=== PATIENT | male | born 1945 | race Caucasian/White ===

== ENCOUNTER 2016-09-16 11:05 | Inpatient (IN) | payer MEDICARE ==
[2016-09-16] VITALS (8 sets, daily range): BP systolic 120–134; BP diastolic 57–68; PULSE 66–74; RESP 18–21; TEMP 98.3–98.8; O2SAT 96–100
[~2016-09-16] VITALS: Ht 167.6 cm; Wt 68.0 kg
[2016-09-16] MEDS ORDERED: SODIUM CHLORIDE 0.9% FLUSH 10 ML FLUSH IVF PRN (11:30)
[2016-09-16] MEDS: RESP: ALBUTEROL 2.5 MG/IPRATROPIUM 0.5 MG NEB (SCH) INH (11:39)
--- NOTE | 2016-09-16 11:39 | PD ---
HPI Chief Complaint: Respiratory Distress Time Seen by Provider: 11:25 Travel History International Travel<30 days: Yes Contact w/Intl Traveler<30days: Yes Name of Country Traveled to: [place] Traveled to known affect area: No History of Present Illness HPI The patient is a 71-year-old male who presents emergency department for wheezing. The patient states he developed wheezing last night, states he can hear "whistling sounds ", when he exhales. She notes minimal shortness of breath, denies any chest pain. The patient does have a history of coronary artery disease with previous bypass and stent placement. The patient is currently followed by his hospitality coordinator, Dr. Mcknight, as well as his primary physician, Dr. Lynne Wallace. The patient thinks he recently had a stress test which was unremarkable. The patient denies any history of asthma, COPD, or recurrent bronchitis. The patient has a remote history of smoking, quit over 20 years ago. He denies any fever, chills, sweats, nausea, vomiting, or abdominal pain. Symptoms are moderate and there are no known alleviating or exacerbating factors. PFSH Past Medical History Cardiomyopathy: Yes Congestive Heart Failure: Yes Diabetes: Yes Patient Takes Glucophage: Yes Myocardial Infarction: Yes (1997) ?: Not Social History Alcohol Use: No Tobacco Use: No (quit 20 years ago) Substance Use: No Allergies-Medications (Allergen,Severity, Reaction): Coded Allergies: No Known Allergies (Unverified , 09/16/16) Review of Systems Except as stated in HPI: all other systems reviewed are Neg General / Constitutional: No: Fever Cardiovascular: No: Chest Pain or Discomfort Respiratory: Positive: Cough (minimal), Shortness of Breath, Wheezing Gastrointestinal: No: Nausea, Vomiting, Diarrhea, Abdominal Pain Musculoskeletal: No: Edema Neurologic: No: Dizziness Physical Exam Narrative GENERAL: Awake, alert, pleasant 71-year-old male who appears his stated age and is in no acute respiratory distress. SKIN: Focused skin assessment warm/dry. Patient has a large macular rash noted over the back and abdomen which is nonblanching. HEAD: Atraumatic. Normocephalic. EYES: No injection or drainage. ENT: No nasal bleeding or discharge. Mucous membranes pink and moist. NECK: Trachea midline. No JVD. CARDIOVASCULAR: Regular rate and rhythm. No murmur appreciated. RESPIRATORY: No accessory muscle use. Few scattered wheezes and rhonchi in the bases bilaterally. GASTROINTESTINAL: Abdomen soft, non-tender, nondistended. No rebound tenderness. MUSCULOSKELETAL: No obvious deformities. No clubbing. No cyanosis. No edema. NEUROLOGICAL: Awake and alert. No obvious cranial nerve deficits. Motor grossly within normal limits. Normal speech. PSYCHIATRIC: Appropriate mood and affect; insight and judgment normal. Data Data Last Documented VS Vital Signs Date Time Temp Pulse Resp B/P Pulse Ox O2 Delivery O2 Flow Rate FiO2 09/16/16 12:04 66 18 131/58 98 Room Air 09/16/16 11:22 98.3 Orders Complete Blood Count With Diff (09/16/16:) Comprehensive Metabolic Panel (09/16/16:) B-Type Natriuretic Peptide (09/16/16) Act Partial Throm Time (Ptt) (09/16/16:) Prothrombin Time / Inr (Pt) (09/16/16:) Magnesium (Mg) (09/16/16:) Ckmb (Isoenzyme) Profile (09/16/16:27) Troponin I (09/16/16:27) Iv Access Insert/Monitor (09/16/16:) Electrocardiogram (09/16/16:) Ecg Monitoring (09/16/16:) Oximetry (09/16/16:) Oxygen Administration (09/16/16:27) Chest, Single Ap (09/16/16 11:27) Sodium Chloride 0.9% Flush (Ns Flush) (09/16/16 11:30) Albuterol-Ipratropium Neb (Duoneb Neb) (09/16/16 11:30) CKMB (09/16/16 11:40) CKMB% (09/16/16 11:40) Sodium Chlor 0.9% 1000 Ml Inj (Ns 1000 M (09/16/16 12:45) Blood Culture (09/16/16 12:39) Lactic Acid (09/16/16 12:39) Urinalysis - C+S If Indicated (09/16/16 13:19) Place In Observation (09/16/16 ) Vital Signs (Adult) Q4H (09/16/16 13:20) Activity Bed Rest With Brp (09/16/16 13:20) Senior Sas Developer / Telemetry .CONTINUOUS (09/16/16 13:20) Intake + Output AURELIANO.QSHIFT (09/16/16 13:20) Diet Heart Healthy (09/16/16 Lunch) Sodium Chlor 0.9% 1000 Ml Inj (Ns 1000 M (09/16/16 14:00) Sodium Chloride 0.9% Flush (Ns Flush) (09/16/16 13:30) Sodium Chloride 0.9% Flush (Ns Flush) (09/16/16 21:00) Acetaminophen (Tylenol) (09/16/16 13:30) Ondansetron Inj (Zofran Inj) (09/16/16 13:30) Basic Metabolic Panel (Bmp) (09/17/16 06:00) Complete Blood Count With Diff (09/17/16 06:00) Creatine Kinase (Cpk) (09/17/16 06:00) Creatine Kinase (Cpk) (09/17/16 12:00) Resp Oxygen Jaime C Titrat 1-4 L (09/16/16 ) Pt Request For Service (09/16/16 13:20) Heparin Inj (Heparin Inj) (09/16/16 14:00) Naloxone Inj (Narcan Inj) (09/16/16 13:30) Admit Order (Ed Use Only) (09/16/16 13:19) Labs Laboratory Tests Test 09/16/16 09/16/16 11:40 12:58 White Blood Count 5.2 TH/MM3 Red Blood Count 3.37 MIL/MM3 Hemoglobin 10.4 GM/DL Hematocrit 31.6 % Mean Corpuscular Volume 93.9 FL Mean Corpuscular Hemoglobin 31.0 PG Mean Corpuscular Hemoglobin 33.0 % Concent Red Cell Distribution Width 14.9 % Platelet Count 134 TH/MM3 Mean Platelet Volume 10.0 FL Neutrophils (%) (Auto) 74.0 % Lymphocytes (%) (Auto) 9.0 % Monocytes (%) (Auto) 16.5 % Eosinophils (%) (Auto) 0.4 % Basophils (%) (Auto) 0.1 % Neutrophils # (Auto) 3.8 TH/MM3 Lymphocytes # (Auto) 0.5 TH/MM3 Monocytes # (Auto) 0.9 TH/MM3 Eosinophils # (Auto) 0.0 TH/MM3 Basophils # (Auto) 0.0 TH/MM3 CBC Comment DIFF FINAL Differential Comment Prothrombin Time 11.3 SEC Prothromb Time International 1.0 RATIO Ratio Activated Partial 45.9 SEC Thromboplast Time Sodium Level 133 MEQ/L Potassium Level 5.2 MEQ/L Chloride Level 100 MEQ/L Carbon Dioxide Level 24.6 MEQ/L Anion Gap 8 MEQ/L Blood Urea Nitrogen 26 MG/DL Creatinine 1.49 MG/DL Estimat Glomerular Filtration 46 ML/MIN Rate Random Glucose 219 MG/DL Calcium Level 8.6 MG/DL Magnesium Level 1.7 MG/DL Total Bilirubin 1.1 MG/DL Aspartate Amino Transf 248 U/L (AST/SGOT) Alanine Aminotransferase 100 U/L (ALT/SGPT) Alkaline Phosphatase 78 U/L Total Creatine Kinase 4812 U/L Creatine Kinase MB 4.2 NG/ML Creatine Kinase MB % 0.1 % Troponin I 0.05 NG/ML B-Type Natriuretic Peptide 757 PG/ML Total Protein 7.0 GM/DL Albumin 3.2 GM/DL Lactic Acid Level 1.4 mmol/L [facility] Medical Decision Making Medical Screen Exam Complete: Yes Emergency Medical Condition: Yes Medical Record Reviewed: Yes Interpretation(s) EKG reveals sinus bradycardia with a heart rate of 56. Patient has inverted T waves in lead 1, aVL, V4, V5, and V6. Mild KS depression in lead V3. No old EKGs to compare. Last Impressions Chest X-Ray 09/16/16 1127 Signed Impressions: Service Date/Time: Friday, September 16, 2016 11:29 - CONCLUSION: No acute disease. Claudio Abdi MD Laboratory Tests Test 09/16/16 11:40 White Blood Count 5.2 TH/MM3 Red Blood Count 3.37 MIL/MM3 Hemoglobin 10.4 GM/DL Hematocrit 31.6 % Mean Corpuscular Volume 93.9 FL Mean Corpuscular Hemoglobin 31.0 PG Mean Corpuscular Hemoglobin 33.0 % Concent Red Cell Distribution Width 14.9 % Platelet Count 134 TH/MM3 Mean Platelet Volume 10.0 FL Neutrophils (%) (Auto) 74.0 % Lymphocytes (%) (Auto) 9.0 % Monocytes (%) (Auto) 16.5 % Eosinophils (%) (Auto) 0.4 % Basophils (%) (Auto) 0.1 % Neutrophils # (Auto) 3.8 TH/MM3 Lymphocytes # (Auto) 0.5 TH/MM3 Monocytes # (Auto) 0.9 TH/MM3 Eosinophils # (Auto) 0.0 TH/MM3 Basophils # (Auto) 0.0 TH/MM3 CBC Comment DIFF FINAL Differential Comment Prothrombin Time 11.3 SEC Prothromb Time International 1.0 RATIO Ratio Activated Partial 45.9 SEC Thromboplast Time Sodium Level 133 MEQ/L Potassium Level 5.2 MEQ/L Chloride Level 100 MEQ/L Carbon Dioxide Level 24.6 MEQ/L Anion Gap 8 MEQ/L Blood Urea Nitrogen 26 MG/DL Creatinine 1.49 MG/DL Estimat Glomerular Filtration 46 ML/MIN Rate Random Glucose 219 MG/DL Calcium Level 8.6 MG/DL Magnesium Level 1.7 MG/DL Total Bilirubin 1.1 MG/DL Aspartate Amino Transf 248 U/L (AST/SGOT) Alanine Aminotransferase 100 U/L (ALT/SGPT) Alkaline Phosphatase 78 U/L Total Creatine Kinase 4812 U/L Creatine Kinase MB 4.2 NG/ML Creatine Kinase MB % 0.1 % Troponin I 0.05 NG/ML B-Type Natriuretic Peptide 757 PG/ML Total Protein 7.0 GM/DL Albumin 3.2 GM/DL Differential Diagnosis Differential diagnosis includes bronchitis, pneumonia, congestive heart failure , pulmonary edema, pleural effusion, acute coronary syndrome, cardiomyopathy, pulmonary embolism. Narrative Course IV was established, labs were drawn and sent, and the patient was placed on cardiac telemetry monitoring and continuous pulse oximetry monitoring. EKG was ordered and interpreted. Chest x-ray was obtained. The patient was administered a DuoNeb. Chest x-rays unremarkable. CPKs greater than 4800, troponin is 0.05, CK-MB percentage is normal. BNP is 757. I discussed the patient with one of the family members who is also a physician, Dr. David, an anesthesiologist. He states he has been taking care of the patient at home over the last several days and the patient has been hypoglycemic and hypotensive at times. The patient's blood pressure has improved, the mental status has improved according to family members, however, the patient does have an elevated creatinine and CPK of 4800 with elevated BNP of previous CABG. The patient will need judicious IV fluid replacement. Therefore, lactic acid blood culture were sent, the patient received IV fluids and will be admitted for rhabdomyolysis and IV hydration. Physician Communication Physician Communication The on-call medical service was paged for admission. I discussed the patient with Dr. Larson who agrees with 23 hour observation. Diagnosis Primary Impression: Rhabdomyolysis Qualified Code: M62.82 - Non-traumatic rhabdomyolysis Additional Impression: Acute kidney injury Admitting Information Admitting Physician Requests: Admit Condition: Stable Cesar Jackson MD Sep 16, 2016 11:39
[2016-09-16 11:54] LABS: AUTOMATED NEUTROPHIL # 3.8 TH/MM3 (1.8-7.7); BASOPHIL % 0.1 % (0.0-2.0); EOSINOPHIL % 0.4 % (0.0-4.0); HEMATOCRIT 31.6 % (39.0-51.0); HEMO FLAGS DIFF FINAL; LYMPHOCYTE # 0.5 TH/MM3 (1.0-4.8); MEAN CELL VOLUME 93.9 FL (80.0-100.0); MONO % 16.5 % (0.0-8.0); PLATELET COUNT 134 TH/MM3 (150-450); RED BLOOD COUNT 3.37 MIL/MM3 (4.50-5.90); RED CELL DISTRIBUTION WIDTH 14.9 % (11.6-17.2); WHITE BLOOD COUNT 5.2 TH/MM3 (4.0-11.0)
--- NOTE | 2016-09-16 11:55 | RADRPT ---
EXAM DATE/TIME: 09/16/2016 11:29 [facility] COMPARISON: No previous studies available for comparison. INDICATIONS : Short of breath. MEDICAL HISTORY : None. SURGICAL HISTORY : CABG. ENCOUNTER: Initial ACUITY: 1 day PAIN SCORE: Non-responsive. LOCATION: Bilateral chest FINDINGS: There is cardiomegaly and sternotomy wires. The lungs are clear. Osseous structures are intact. CONCLUSION: No acute disease. Claudio Abdi MD on September 16, 2016 at 11:52 Board Certified Radiologist. This report was verified electronically.
[2016-09-16 12:10] LABS: APTT (PATIENT) 45.9 SEC (24.3-30.1); PROTHROMBIN TIME - PATIENT 11.3 SEC (9.8-11.6)
[2016-09-16 12:14] LABS: ANION GAP 8 MEQ/L (5-15); AST (GOT) 248 U/L (15-37); BICARBONATE 24.6 MEQ/L (21.0-32.0); BLOOD UREA NITROGEN 26 MG/DL (7-18); CHLORIDE 100 MEQ/L (98-107); GLOMERULAR FILTRATION RATE 46 ML/MIN (>89); MAGNESIUM 1.7 MG/DL (1.5-2.5); POTASSIUM 5.2 MEQ/L (3.5-5.1); SODIUM (NA) 133 MEQ/L (136-145)
[2016-09-16 12:28] LABS: ALKALINE PHOSPHATASE 78 U/L (45-117); ALT (GPT) 100 U/L (12-78); CREATINE KINASE 4812 U/L (39-308); TOTAL BILIRUBIN ADULT 1.1 MG/DL (0.2-1.0)
[2016-09-16 12:40] LABS: CKMB 4.2 NG/ML (0.5-3.6)
[2016-09-16] MEDS ORDERED: SODIUM CHLOR 0.9% 1000 ML INJ 1,000 ML IV ONE (12:45)
[2016-09-16] MEDS ORDERED: SODIUM CHLORIDE 0.9% FLUSH 10 ML FLUSH IV FLUSH PRN (13:30)
[2016-09-16] MEDS ORDERED: ACETAMINOPHEN 325 MG TAB PO PRN (13:30)
[2016-09-16] MEDS ORDERED: NALOXONE HCL 0.4 MG/ML AMP IV PRN (13:30)
[2016-09-16] MEDS ORDERED: ONDANSETRON HCL 4 MG/2 ML VIAL IVP PRN (13:30)
[2016-09-16 14:16] LABS: BLOOD, URINE SMALL (NEG); GLUCOSE,URINE TRACE mg/dL (NEG); KETONE, URINE NEG (NEG); NITRITE,URINE NEG (NEG); URINE COLOR LIGHT-YELLOW (YELLW/STRAW)
[2016-09-16 14:18] LABS: COMMENT (UR) CULT NOT INDICATED; CULTURE IF INDICATED CULT NOT INDICATED
[2016-09-16] MEDS: SODIUM CHLOR 0.9% 1000 ML INJ 1,000 ML IV SCH (14:36)
[2016-09-16] MEDS: HEPARIN SODIUM - SQ 10,000 UNITS/ML VIAL SQ SCH (14:36)
[2016-09-16] MEDS ORDERED: GLYB1TAB93 PO (14:42)
[2016-09-16] MEDS ORDERED: EMPA1TAB3 PO (14:42)
[2016-09-16] MEDS ORDERED: VASO10TA8 PO (14:42)
[2016-09-16] MEDS ORDERED: LEVO25TA4 PO (14:42)
[2016-09-16] MEDS ORDERED: CORE25TA PO (14:42)
[2016-09-16] MEDS ORDERED: METH2.5T PO (14:42)
[2016-09-16] MEDS ORDERED: ATOR40TA16 PO (14:42)
[2016-09-16] MEDS: RESP: ALBUTEROL 2.5 MG/IPRATROPIUM 0.5 MG NEB (SCH) NEB ×3 (15:36→22:56)
--- NOTE | 2016-09-16 16:06 | MH ---
cc: THEODORE JEREZ DATE OF ADMISSION: 09/16/2016 CHIEF COMPLAINT Wheezing and shortness of breath. TRAVEL IN THE LAST 30 DAYS: Yes. On 09/02/2016 the patient was in [place] on a [place] which included [place]. HISTORY OF PRESENT ILLNESS: This is a very pleasant 71-year-old male who presented to the emergency room for wheezing and shortness of breath. The patient has noted problems for the past five days. He states that he has been in his usual state of health up until that point. He also noticed some mild dizziness off and on but no syncopal episodes. He also states that he has had trouble standing and walking for the past few days. These are all new symptoms. The patient denies any problems with COPD or bronchitis, He does have a history of cardiovascular disease and had a work up not too long ago, but states that he is not use to having any type of shortness of breath or wheezing. He does note, history of congestive heart failure but at this time his chest x-ray looks clear. The patient has a large macular rash noted on his trunk, especially on his back and on his arms. He states that he has been treated for psoriasis for years. The patient denies any chest pain, denies any nausea and vomiting, diarrhea, no constipation, no headaches. The patient states that he has been voiding without any problems but he does have a sense of urgency. The patient does have a tired sensation and stated that his symptoms were not getting any better and he came to the emergency room for evaluation. MEDICAL HISTORY Congestive heart failure. Diabetes type 2 Cardiomyopathy No surgical history given ALLERGIES NONE KNOWN. MEDICATIONS: Lasix is the only medication that patient noted. SOCIAL HISTORY: The patient is , currently is with him, denies any alcohol use. Was a previous smoker but quit approximately 20 years ago. No substance abuse. REVIEW OF SYSTEMS A 12-point review was done positives noted. All are some mild expiratory wheezing with cough, occasional sputum production, shortness of breath, weakness in his lower extremities, mild dizziness, psoriasis otherwise other systems are negative or unremarkable. PHYSICAL EXAMINATION: VITAL SIGNS: Temperature 98.3 pulse 66, respirations 18, blood pressure 131/58, O2 sat 98% on room air. IN GENERAL: Well nourished male, looks to be his stated age, resting on edge of bed. He is alert, oriented and a fair historian. SKIN: The skin is pink mucous membranes warm and dry. Turgor is very dry. Large macular rash noted on his trunk and his bilateral arms with dry skin. HEAD, EYES, EARS, NOSE, AND THROAT: Atraumatic, normocephalic. Pupils equal, round, reactive to light and accommodation, mucous membranes were pink and moist. No scleral icterus. NECK: The neck is supple. CARDIOVASCULAR SYSTEM: S1-S2, no murmurs were to gallops. Heart sounds are mildly distant he has no edema. His pulses are intact. PULMONARY: Diminished wheezy noisy breath sounds anteriorly and posteriorly. He does have some expiratory wheezes and some rhonchi noted. : Clear yellow urine noted in urinal. MUSCULOSKELETAL: He moves his extremities with purpose, He does have some generalized weakness noted in his lower extremities. He is moving his upper extremities and can overcome resistance. NEUROLOGICALLY: He is alert, oriented a fair historian. His assists with some of this information and the rest of it is being obtained from the record. His speech is clear with an accent. PSYCHIATRIC: Appropriate mood and affect, judgment normal, asking appropriate questions. DIAGNOSTIC DATA Sodium 133, potassium 0.2, chloride was 100, carbon dioxide 24.6 and anion gap 8, BUN 26, creatinine 1.49, GFR 46, random glucose 219, lactic acid 1.4, calcium 8.6, magnesium 1.7, total bilirubin 1.1, AST 248, ALT 100 alkaline phosphatase 78, total creatinine kinase 4812, CPK-MB 2, CPK-MB is 4.2, percentage 0.1, troponin 0.05. BNP 757, total protein 7, albumin 3.2. PT/INR is 1, white blood cell 5.2, RBC 3.37, hemoglobin 7.1, hematocrit 31.6, platelet count 134. Neutrophil auto percentage 74, monocyte, auto percentage 16.5. Length of 50.5. IMAGING STUDIES Shows chest pain to have no acute disease. ASSESSMENT AND PLAN: 1. Rhabdomyolysis, nontraumatic with acute kidney injury and renal insufficiency. 2. Anemia. 3. Thrombocytopenia, mild. 4. Hypokalemia, mild. 5. Hyponatremia mild. 6. Hyperglycemia in the presence of nondiabetes. 7. History of congestive heart failure. 8. Protein calorie malnutrition, mild. 9. Possible bronchitis 10. Bronchitis. Possibly viral respiratory infection. PLAN: The plan is to admit inpatient status, continuous ECG monitoring, IV hydration continuous for now. In the emergency room the patient received a normal saline Bolus. Lab work, multiple lab work, electrocardiogram monitoring, oxygen administration. Electrocardiogram, deep venous thrombosis prophylaxis will be given with heparin, Protonix, p.o. for PUD prophylaxis. The patient will receive p.r.n. medications and will attempt to reconcile his medications, heart healthy diet. Bedrest with bathroom privileges only with assistance for his safety, intake and output, vital signs will be q 4 hours and more often as warranted. Plan of care will be discussed with Dr. Jerez, DuoNeb's have been ordered Q-4, to continue with 02, we will get a sputum culture. We will [id number] his aggressive hydration. The patient is full code, full aggressive care and we will follow. Soha Jerez MD DICTATED BY: DEE Bridges/may /2:02 PM /2:59 PM
[2016-09-16] MEDS: SODIUM CHLORIDE 0.9% FLUSH 10 ML FLUSH IV FLUSH SCH (21:17)
[2016-09-17] VITALS (7 sets, daily range): BP systolic 108–138; BP diastolic 57–74; PULSE 61–84; RESP 18–20; TEMP 98.1–99.8; O2SAT 94–97
[2016-09-17] MEDS: SODIUM CHLOR 0.9% 1000 ML INJ 1,000 ML IV SCH (02:46)
[2016-09-17] MEDS: HEPARIN SODIUM - SQ 10,000 UNITS/ML VIAL SQ SCH ×2 (02:47→14:29)
[2016-09-17] MEDS: RESP: ALBUTEROL 2.5 MG/IPRATROPIUM 0.5 MG NEB (SCH) NEB ×6 (03:42→23:38)
[2016-09-17 07:16] LABS: AUTOMATED NEUTROPHIL # 3.8 TH/MM3 (1.8-7.7); BASOPHIL % 0.2 % (0.0-2.0); EOSINOPHIL % 0.3 % (0.0-4.0); HEMATOCRIT 29.4 % (39.0-51.0); LYMPH % 13.3 % (9.0-44.0); LYMPHOCYTE # 0.8 TH/MM3 (1.0-4.8); MEAN CORPUSCULAR HEMOGLOBIN 31.4 PG (27.0-34.0); MEAN CORPUSCULAR HGB CONC 33.5 % (32.0-36.0); MONO % 26.9 % (0.0-8.0); NEUT % 59.3 % (16.0-70.0); PLATELET COUNT 120 TH/MM3 (150-450); RED BLOOD COUNT 3.12 MIL/MM3 (4.50-5.90); RED CELL DISTRIBUTION WIDTH 14.7 % (11.6-17.2); WHITE BLOOD COUNT 6.3 TH/MM3 (4.0-11.0)
[2016-09-17 07:19] LABS: HEMO FLAGS AUTO DIFF
[2016-09-17 07:35] LABS: BICARBONATE 23.3 MEQ/L (21.0-32.0); POTASSIUM 4.6 MEQ/L (3.5-5.1)
[2016-09-17 07:57] LABS: CKMB 2.7 NG/ML (0.5-3.6)
--- NOTE | 2016-09-17 08:17 | HHI.PR ---
Subjective Subjective Remarks awake pleasant confusion during am hours. O2 per mask SOB mild at rest restless in bed daughter in (Emily Bernal) Review of Systems Constitutional Constitutional: Weakness (generalized, and LE) (Emily Bernal) Pulmonary Respiratory: Shortness of Breath, Wheezing (Emily Bernal) Musculoskeletal MS: Weakness, Stiffness (Emily Bernal) Neurologic Neurologic: Confused (new) (Emily Bernal) Psychiatric Psychiatric: Normal Mood, Anxiety, Sleep Problems (Emily Bernal) Vitals/Results Vital Signs Vital Signs Date Time Temp Pulse Resp B/P Pulse Ox O2 Delivery O2 Flow Rate FiO2 09/17/16 07:39 94 Nasal Cannula 2.00 09/17/16 07:24 71 20 138/63 95 09/17/16 03:29 98.7 72 18 136/63 97 09/17/16 00:00 98.1 84 18 128/74 97 09/16/16 22:15 70 09/16/16 19:46 98.8 74 21 121/68 96 09/16/16 19:20 100 09/16/16 14:37 69 18 120/58 96 Room Air 09/16/16 13:25 99 21 09/16/16 12:04 66 18 131/58 98 Room Air 09/16/16 11:29 98 Room Air 09/16/16 11:29 18 97 Room Air 09/16/16 11:22 65 18 98 Room Air 09/16/16 11:22 98.3 70 18 134/57 98 Room Air (Emily Bernal) CBC/BMP: 09/17/16 0552 09/17/16 0552 Lab Results Laboratory Tests Test 09/16/16 09/16/16 09/16/16 09/17/16 11:40 12:58 13:45 05:52 White Blood Count 5.2 TH/MM3 6.3 TH/MM3 Red Blood Count 3.37 MIL/MM3 3.12 MIL/MM3 Hemoglobin 10.4 GM/DL 9.8 GM/DL Hematocrit 31.6 % 29.4 % Mean Corpuscular Volume 93.9 FL 94.0 FL Mean Corpuscular Hemoglobin 31.0 PG 31.4 PG Mean Corpuscular Hemoglobin 33.0 % 33.5 % Concent Red Cell Distribution Width 14.9 % 14.7 % Platelet Count 134 TH/MM3 120 TH/MM3 Mean Platelet Volume 10.0 FL 10.5 FL Neutrophils (%) (Auto) 74.0 % 59.3 % Lymphocytes (%) (Auto) 9.0 % 13.3 % Monocytes (%) (Auto) 16.5 % 26.9 % Eosinophils (%) (Auto) 0.4 % 0.3 % Basophils (%) (Auto) 0.1 % 0.2 % Neutrophils # (Auto) 3.8 TH/MM3 3.8 TH/MM3 Lymphocytes # (Auto) 0.5 TH/MM3 0.8 TH/MM3 Monocytes # (Auto) 0.9 TH/MM3 1.7 TH/MM3 Eosinophils # (Auto) 0.0 TH/MM3 0.0 TH/MM3 Basophils # (Auto) 0.0 TH/MM3 0.0 TH/MM3 CBC Comment DIFF FINAL AUTO DIFF Differential Comment Prothrombin Time 11.3 SEC Prothromb Time International 1.0 RATIO Ratio Activated Partial 45.9 SEC Thromboplast Time Sodium Level 133 MEQ/L 133 MEQ/L Potassium Level 5.2 MEQ/L 4.6 MEQ/L Chloride Level 100 MEQ/L 102 MEQ/L Carbon Dioxide Level 24.6 MEQ/L 23.3 MEQ/L Anion Gap 8 MEQ/L 8 MEQ/L Blood Urea Nitrogen 26 MG/DL 21 MG/DL Creatinine 1.49 MG/DL 1.40 MG/DL Estimat Glomerular Filtration 46 ML/MIN 50 ML/MIN Rate Random Glucose 219 MG/DL 200 MG/DL Calcium Level 8.6 MG/DL 7.9 MG/DL Magnesium Level 1.7 MG/DL Total Bilirubin 1.1 MG/DL Aspartate Amino Transf 248 U/L (AST/SGOT) Alanine Aminotransferase 100 U/L (ALT/SGPT) Alkaline Phosphatase 78 U/L Total Creatine Kinase 4812 U/L 2923 U/L Creatine Kinase MB 4.2 NG/ML 2.7 NG/ML Creatine Kinase MB % 0.1 % 0.1 % Troponin I 0.05 NG/ML B-Type Natriuretic Peptide 757 PG/ML Total Protein 7.0 GM/DL Albumin 3.2 GM/DL Lactic Acid Level 1.4 mmol/L Urine Color LIGHT-YELLOW Urine Turbidity CLEAR Urine pH 5.0 Urine Specific [place] 1.008 Urine Protein NEG mg/dL Urine Glucose (UA) TRACE mg/dL Urine Ketones NEG mg/dL Urine Occult Blood SMALL Urine Nitrite NEG Urine Bilirubin NEG Urine Urobilinogen LESS THAN 2.0 MG/DL Urine Leukocyte Esterase NEG Urine RBC LESS THAN 1 /hpf Urine WBC LESS THAN 1 /hpf Microscopic Urinalysis Comment CULT NOT INDICATED Microbiology Microbiology 09/16/16 Aerobic Blood Culture, Received Pending 09/16/16 Anaerobic Blood Culture, Received Pending 09/16/16 Aerobic Blood Culture, Received Pending 09/16/16 Anaerobic Blood Culture, Received Pending Imaging Remarks Last Impressions Chest X-Ray 09/16/16 1127 Signed Impressions: Service Date/Time: Friday, September 16, 2016 11:29 - CONCLUSION: No acute disease. Claudio Abdi MD Current Medications Active Medications Acetaminophen (Tylenol) 650 mg Q4H PRN PO; Start 09/16/16 at 13:30 Albuterol/ Ipratropium 1 ampule 1 ampule Q15M INH Last administered on 11:39; Admin Dose 1 AMPULE; Start 09/16/16 at 11:30; Stop 09/16/16 at 11:46 ; Status DC Heparin Sodium (Porcine) (Heparin Inj) 5,000 units Q12H SQ Last administered on 09/17/16 02:47; Admin Dose 5,000 UNITS; Start 09/16/16 at 14:00 Naloxone HCl (Narcan Inj) 0.4 mg UNSCH PRN IV; Start 09/16/16 at 13:30 Ondansetron HCl (Zofran Inj) 4 mg Q6H PRN IVP; Start 09/16/16 at 13:30 Pantoprazole Sodium (Protonix) 40 mg DAILY PO; Start 09/17/16 at 09:00 Sodium Chloride 1,000 ml @ 999 mls/hr BOLUS ONCE IV Last administered on 12:45; Admin Dose 999 MLS/HR; Start 09/16/16 at 12:45; Stop 09/16/16 at 13: 45; Status DC Sodium Chloride (NS 1000 ml Inj) 1,000 ml @ 75 mls/hr [id number] IV Last administered on 09/17/16 02:46; Admin Dose 75 MLS/HR; Start 09/16/16 at 14:00; Stop 09/17/16 at 08:03; Status DC Sodium Chloride (NS Flush) 2 ml BID IV FLUSH Last administered on 09/16/16 21: 17; Admin Dose 2 ML; Start 09/16/16 at 21:00 Sodium Chloride (NS Flush) 2 ml UNSCH PRN IV FLUSH; Start 09/16/16 at 13:30 Sodium Chloride (NS Flush) 2 ml UNSCH PRN IVF; Start 09/16/16 at 11:30; Stop at 13:36; Status DC (Emily Bernal. BOX CAR CHECKER) Physical Exam General General Appearance: Well Developed, Well Nourished, Pale, Anxious (Emily Bernal M. [employer]OX [employer] CHECKER) Eyes Eye Exam: Pupils Reactive (Emily Bernal M. [employer]OX [employer] CHECKER) Ears & Nose Ears & Nose Exam: Nasal Mucosa [place] (Emily Bernal M. [employer]OX [employer] CHECKER) Throat Throat Exam: Oral Mucosa [place] & Moist (Tess Bernalan M. BOX CAR CHECKER) Neck Neck Exam: Neck Supple, Trachea Midline (DoloresTess iglesiasan M. BOX [employer] CHECKER) Pulmonary Resp Exam: Breath Sounds Equal, Diminished Breath Sounds, Poor Inspiratory Effort Resp Remarks wheezing, (Tess Bernalan M. BOX [employer] CHECKER) Cardiology CV Exam: Regular, Normal Sinus Rhythm, Bradycardia (X 1 last am) (Tess Bernalan M. BOX [employer] CHECKER) Gastrointestinal/Abdomen GI Exam: Soft, Non-Tender, Bowel Sounds Present (Emily Bernal M. [employer]OX [employer] CHECK[employer]) Genitourinary Exam: Clear Urine (Emily Bernal M. [employer]OX [employer]) Musculoskeletal MS Exam: Joints Intact (Emily Bernal M. [employer]OX [employer]) Integumentary Skin Exam: Warm, Dry, Intact Skin Remarks scoriasis (Tess Bernalan M. BOX [employer] CHECKER) Extremeties Extremities Exam: No Edema (Tess Bernalan M. BOX [employer] CHECKER) Assessment/Plan Assessment/Plan 1. Rhabdomyolysis, nontraumatic with acute kidney injury and renal insufficiency. 2. Anemia. 3. Thrombocytopenia, mild. 4. Hypokalemia, mild. 5. Hyponatremia mild. 6. Hyperglycemia in the presence of nondiabetes. 7. History of congestive heart failure. 8. Protein calorie malnutrition, mild. 9. Possible bronchitis 10. Bronchitis. Possibly viral respiratory infection. vitals reviewed, normal ranges. Staff states pt. had 1 episode of bradycardia in the am. Patient O2 sat 85, mask 35 % now. Mild dyspnea and restlessness this am. wheezing continues from admission. Hx CHF, eval new CRX this am. BS are diminished, wheezing continues. Will review labs again. DUOnebs q4hr ECG, SR 70s AMS, questionable change in environment and illness, vs hypoxia,, IVF off for now, stat CXR done, portable. Dr. Larson called per staff for update. Rhabdomyolysis, improved today, but still elevated. MY, essentially unchanged, hyponatremia persists. Hyperglycemia , non DM, persists. Will monitor accuchecks for now. SS added Heparin , DVT pro, protonix, PUD D/W nurse D/W daughter D/W Dr. Larson, seen on her behalf (Emily Bernal) Assessment/Plan patient seen and examined developed resp distress requiring VM this am sudden onset confusion this am, although now slowly improving and oriented to person place etc low grade fever 100.1 lungs: crackles d/c i/v fluids CXR with some congestion lasix 20 mg po once check ECHO start rocephin monitor fevers discussed with daughter ( [employer]). concerned about recent falls and confusion. ? CVA MRI brain ordered discussed in detail with patient' daughter at bed side discussed with nursing staff discussed with Emily PRICE (Soha Larson MD) Emily Bernal Sep 17, 2016 08:17 Soha Larson MD Sep 17, 2016 10:06
[2016-09-17] MEDS ORDERED: DEXTROSE 50% IN WATER 50 ML VIAL(D50) IV PUSH PRN (08:30)
[2016-09-17] MEDS ORDERED: GLUCAGON 1 MG/ML VIAL OTHER PRN (08:30)
[2016-09-17 08:44] LABS: BANDS 15 % (0-6); NEUTROPHIL # MANUAL DIFF 4.4 TH/MM3 (1.8-7.7); PLASMA CELLS 1 % (0-0); POLYS (SEG NEUTROPHILS) 55 % (16-70); WBC DIFF SAMPLE 100
[2016-09-17 08:45] LABS: ACANTHOCYTES OCC (NORMAL); PLATELET ESTIMATE SMEAR LOW (NORMAL); PLATELET MORPHOLOGY NORMAL (NORMAL); SCAN/DIFF FINAL DIFF MANUAL
--- NOTE | 2016-09-17 09:08 | RADRPT ---
EXAM DATE/TIME: 09/17/2016 08:24 [facility] COMPARISON: No previous studies available for comparison. INDICATIONS : Patient has had productive cough and chest pain for two days. MEDICAL HISTORY : None. SURGICAL HISTORY : None. ENCOUNTER: Initial ACUITY: 1 day PAIN SCORE: 4/10 LOCATION: Bilateral chest FINDINGS: There are areas of mild vague infiltrate in the left lateral superhilar region and in the lung bases bilaterally. No evidence of effusion. Accounting for rotation, cardiac contours are satisfactory. Lisandro rnotomy wires are present. CONCLUSION: Patchy mild parenchymal infiltrates. Demarcus Lopez MD on September 17, 2016 at 9:06 Board Certified Radiologist. This report was verified electronically.
[2016-09-17] MEDS ORDERED: FUROSEMIDE 20 MG TAB PO ONE (10:15)
[2016-09-17] MEDS: PANTOPRAZOLE SOD 40 MG DELAYED RELEASE TAB PO SCH (10:20)
[2016-09-17] MEDS: SODIUM CHLORIDE 0.9% FLUSH 10 ML FLUSH IV FLUSH SCH ×2 (10:20→21:55)
[2016-09-17] MEDS ORDERED: cefTRIAXone INJ 1,000 MG in SODIUM CHLORIDE 0.9% INJ 100 ML IV SCH (11:00)
--- NOTE | 2016-09-17 12:02 | EKG ---
Date Performed: 09/16/2016 Time Performed: 11:45:47 PTAGE: 71 years EKG: SINUS BRADYCARDIA MARKED LEFT AXIS DEVIATION ST DEVIATION AND MODERATE T-WAVE ABNORMALITY, CONSIDER LATERAL ISCHEMIA ABNORMAL ECG NO PREVIOUS TRACING DOCTOR: Owen Partida Interpretating Date/Time 09/17/2016 11:56:17
[2016-09-17] MEDS: INSULIN NovoLIN REGULAR SUPPLEMENTAL SCALE SQ SCH ×3 (12:11→21:55)
--- NOTE | 2016-09-17 13:45 | RADRPT ---
EXAM DATE/TIME: 09/17/2016 13:18 [facility] COMPARISON: No previous studies available for comparison. INDICATIONS : Altered mental status. MEDICAL HISTORY : Diabetes mellitus type 2. Renal failure, chronic. Hypercholesterolemia. SURGICAL HISTORY : CABG Coronary artery stent. ENCOUNTER: Initial ACUITY: 2 day PAIN SCORE: 0/10 LOCATION: head TECHNIQUE: Multiplanar, multisequence MRI of the brain was performed without contrast. FINDINGS: Examination quality is degraded by motion artifact. CEREBRUM: There is generalized atrophy with mild asymmetry of the lateral ventricles. No evidence of midline s hift, mass lesion, hemorrhage or acute infarction. No extraaxial fluid collections are seen. The pi tuitary gland and suprasellar cistern are normal in configuration. WHITE MATTER: There is mild periventricular white matter signal change with more focal white matter signal abnormal ity in the right parietal mid convexity. POSTERIOR FOSSA: The cerebellum and brainstem demonstrate no acute finding. The 4th ventricle is midline. The cerebel lopontine angle is unremarkable. The cerebellar tonsils are normal in position.DIFFUSION IMAGING: No focal areas of restricted diffusion are seen. No evidence of acute infarction. EXTRACRANIAL: There is mucoperiosteal thickening throughout the paranasal sinuses and there is fluid within the mas toid air cells bilaterally. CONCLUSION: 1. Examination quality is degraded by motion artifact. No acute intracranial abnormality is identifie d. 2. Chronic changes include generalized atrophy and chronic periventricular white matter changes along with right parietal white matter change likely related to old ischemia. 3. Diffuse paranasal sinus mucoperiosteal thickening with fluid in the mastoid air cells. Demarcus Duran MD on September 17, 2016 at 13:40 Board Certified Radiologist. This report was verified electronically.
[2016-09-17 14:47] LABS: INDIRECT BILIRUBIN 0.4 MG/DL (0.0-0.8); TOTAL BILIRUBIN ADULT 0.9 MG/DL (0.2-1.0)
[2016-09-17 15:06] LABS: CKMB 2.8 NG/ML (0.5-3.6)
[2016-09-17] MEDS ORDERED: Vancomycin Consult Pharmacy 1 EA OTHER SCH (17:00)
[2016-09-17] MEDS: PIPERACIL-TAZO 4.5 GM PREMIX 100 ML IV SCH (18:06)
[2016-09-17] MEDS ORDERED: VANCOMYCIN INJ 1,250 MG in SODIUM CHLOR 0.9% 250 ML INJ 250 ML IV SCH (20:00)
[2016-09-17] MEDS ORDERED: CARVEDILOL 12.5 MG TAB PO SCH (21:00)
[2016-09-18] VITALS: BP 121/57; PULSE 53; RESP 18; TEMP 97; O2SAT 99
[2016-09-18] MEDS: HEPARIN SODIUM - SQ 10,000 UNITS/ML VIAL SQ SCH ×2 (02:00→14:07)
[2016-09-18] MEDS: RESP: ALBUTEROL 2.5 MG/IPRATROPIUM 0.5 MG NEB (SCH) NEB ×4 (03:30→15:24)
[2016-09-18 04:00] VITALS: BP 148/66; PULSE 59; RESP 18; TEMP 98.1; O2SAT 99
[2016-09-18] MEDS ORDERED: LEVOTHYROXINE SODIUM 25 MCG TAB PO SCH (06:00)
[2016-09-18] MEDS: PIPERACIL-TAZO 4.5 GM PREMIX 100 ML IV SCH ×4 (06:18→17:28)
[2016-09-18] MEDS: INSULIN NovoLIN REGULAR SUPPLEMENTAL SCALE SQ SCH ×3 (06:21→17:29)
[2016-09-18 06:45] LABS: AUTOMATED NEUTROPHIL # 4.2 TH/MM3 (1.8-7.7); BASOPHIL % 0.3 % (0.0-2.0); EOSINOPHIL # 0.1 TH/MM3 (0-0.4); HEMATOCRIT 26.6 % (39.0-51.0); HEMO FLAGS DIFF FINAL; LYMPH % 8.2 % (9.0-44.0); LYMPHOCYTE # 0.5 TH/MM3 (1.0-4.8); MEAN CELL VOLUME 92.2 FL (80.0-100.0); MEAN CORPUSCULAR HEMOGLOBIN 32.7 PG (27.0-34.0); MEAN CORPUSCULAR HGB CONC 35.4 % (32.0-36.0); MONO % 23.1 % (0.0-8.0); NEUT % 66.4 % (16.0-70.0); PLATELET COUNT 137 TH/MM3 (150-450); RED BLOOD COUNT 2.89 MIL/MM3 (4.50-5.90); RED CELL DISTRIBUTION WIDTH 14.5 % (11.6-17.2); WHITE BLOOD COUNT 6.4 TH/MM3 (4.0-11.0)
[2016-09-18 07:50] LABS: BICARBONATE 26.7 MEQ/L (21.0-32.0); INDIRECT BILIRUBIN 0.6 MG/DL (0.0-0.8); POTASSIUM 3.5 MEQ/L (3.5-5.1); TOTAL BILIRUBIN ADULT 1.4 MG/DL (0.2-1.0)
[2016-09-18 08:00] VITALS: BP 105/72; PULSE 73; RESP 16; TEMP 96; O2SAT 99
[2016-09-18] MEDS: PANTOPRAZOLE SOD 40 MG DELAYED RELEASE TAB PO SCH (08:10)
--- NOTE | 2016-09-18 08:31 | HHI.PR ---
Subjective Subjective Remarks awake, oriented x 3 low grade overnight 99.8 no cp no sob mild cough, little sputum HR down 30's x 1, pt. was sleeping tele reviewed, HR 49, SB no dizziness pt. on Coreg at home daughter at bsd Review of Systems Constitutional Constitutional Remarks 12 point ROS completed, unreliable Vitals/Results Intake & Output 09/17/16 09/17/16 09/18/16 15:00 23:00 07:00 Intake Total 103 ml Output Total 700 ml Balance 103 ml -700 ml Intake IV Total 103 ml Output Urine Total 700 ml Vital Signs Vital Signs Date Time Temp Pulse Resp B/P Pulse Ox O2 Delivery O2 Flow Rate FiO2 09/18/16 04:00 98.1 59 18 148/66 99 09/18/16 00:00 97.0 53 18 121/57 99 09/17/16 20:00 97 21 09/17/16 20:00 98.1 61 18 108/57 97 09/17/16 18:13 99.8 94 09/17/16 13:58 67 CBC/BMP: 09/18/16 0555 09/18/16 0555 Lab Results Laboratory Tests Test 09/17/16 09/18/16 13:56 05:55 Total Bilirubin 0.9 MG/DL 1.4 MG/DL Direct Bilirubin 0.5 MG/DL 0.8 MG/DL Indirect Bilirubin 0.4 MG/DL 0.6 MG/DL Aspartate Amino Transf 173 U/L 121 U/L (AST/SGOT) Alanine Aminotransferase 100 U/L 90 U/L (ALT/SGPT) Alkaline Phosphatase 76 U/L 78 U/L Total Creatine Kinase 2218 U/L 1273 U/L Creatine Kinase MB 2.8 NG/ML 2.0 NG/ML Creatine Kinase MB % 0.1 % 0.2 % Total Protein 6.4 GM/DL 6.1 GM/DL Albumin 2.9 GM/DL 2.7 GM/DL White Blood Count 6.4 TH/MM3 Red Blood Count 2.89 MIL/MM3 Hemoglobin 9.4 GM/DL Hematocrit 26.6 % Mean Corpuscular Volume 92.2 FL Mean Corpuscular Hemoglobin 32.7 PG Mean Corpuscular Hemoglobin 35.4 % Concent Red Cell Distribution Width 14.5 % Platelet Count 137 TH/MM3 Mean Platelet Volume 10.1 FL Neutrophils (%) (Auto) 66.4 % Lymphocytes (%) (Auto) 8.2 % Monocytes (%) (Auto) 23.1 % Eosinophils (%) (Auto) 2.0 % Basophils (%) (Auto) 0.3 % Neutrophils # (Auto) 4.2 TH/MM3 Lymphocytes # (Auto) 0.5 TH/MM3 Monocytes # (Auto) 1.5 TH/MM3 Eosinophils # (Auto) 0.1 TH/MM3 Basophils # (Auto) 0.0 TH/MM3 CBC Comment DIFF FINAL Differential Comment Sodium Level 134 MEQ/L Potassium Level 3.5 MEQ/L Chloride Level 99 MEQ/L Carbon Dioxide Level 26.7 MEQ/L Anion Gap 8 MEQ/L Blood Urea Nitrogen 17 MG/DL Creatinine 1.37 MG/DL Estimat Glomerular Filtration 51 ML/MIN Rate Random Glucose 168 MG/DL Calcium Level 7.7 MG/DL Physical Exam General General Appearance: Well Developed, Well Nourished, Comfortable Eyes Eye Exam: Pupils Equal, Pupils Reactive Ears & Nose Ears & Nose Exam: Nasal Mucosa Hobson Throat Throat Exam: Oral Mucosa Hobson & Moist Neck Neck Exam: Neck Supple, Trachea Midline Pulmonary Resp Exam: Breath Sounds Equal, Diminished Breath Sounds, Poor Inspiratory Effort Cardiology CV Exam: Regular, Normal Sinus Rhythm, Bradycardia (X 1 last am) Gastrointestinal/Abdomen GI Exam: Soft, Non-Tender, Bowel Sounds Present, Non-Distended Musculoskeletal MS Exam: Joints Intact Integumentary Skin Exam: Warm, Dry, Intact Extremeties Extremities Exam: No Edema, Pedal Pulses Palpable Neurologic Neuro Exam: Alert, Awake, Oriented, Speech Clear, Moving All Extremities, No Focal Deficits Psychiatric Psych Exam: Appropriate Responses VTE Prophylaxis VTE Prophylaxis Device: SCDs VTE Prophylaxis Meds: Heparin PUD Prophylasis PUD Prophylaxis: Protonix Assessment/Plan Problem List: (1) Rhabdomyolysis (2) Acute kidney injury (3) Bradycardia (4) Acute confusion (5) PNA (pneumonia) (6) Transaminitis (7) Hyperglycemia (8) Anemia (9) Thrombocytopenia Assessment/Plan episode of AMS, hypoxia, wheezing 09/17 CXR ? PNA received Lasix continue empiric abx, duonebs UA pending today improved, no confusion renal function improving CPK trending down LFTs elevated, etiology unclear now trending down Hyperglycemia, hx of DM will check Hgb A1C continue accuchecks AC/HS with ISS anemia, hgb stable will check iron studies manjinder on tele, while sleeping dec. Coreg if further dysrhythmias, will consult cardiology, sees Dr. Monreal at this time stable, asymptomatic Hx of falls, confused yesterday Brain MRI, no acute findings, old cva will start ASA 81 mg po daily neurology consult echo pending PT eval and tx Labs in am replace K Heparin dvt prophylaxis DC planning, HHC with PT poss. dc tomorrow D/W pt and daughter, she is a balance wheel facer D/W RN D/W Dr. Bailey D/W CM This patient was seen by myself and Dr. Bailey, this note is written on his behalf. Problem Qualifiers (1) Rhabdomyolysis: Qualified Code: M62.82 - Non-traumatic rhabdomyolysis (2) PNA (pneumonia): Qualified Code: J18.9 - Pneumonia of both lower lobes due to infectious organism (3) Anemia: Qualified Code: D64.9 - Anemia, unspecified type Christi Brewer Sep 18, 2016 08:30
--- NOTE | 2016-09-18 08:34 | EC ---
Study Study Date:09/17/2016 STUDY CONCLUSIONS SUMMARY - Left ventricle: The cavity size was mildly dilated. Systolic function was severely reduced. The estimated ejection fraction was in the range of 25% to 30%. Diffuse hypokinesis. The study is not technically sufficient to allow evaluation of LV diastolic function. - Left atrium: The atrium was mildly dilated. - Tricuspid valve: Mild regurgitation. If LV function is below 40, please consider prescribing an ACEI or ARB or document rationale for non-use. PROCEDURE DATA STUDY STATUS: Elective. Procedure: Transthoracic echocardiography. Image quality was good. Scanning was performed from the parasternal, apical, and subcostal acoustic windows. Study completion: The patient tolerated the procedure well. Transthoracic echocardiography. M-mode, complete 2D, complete spectral Doppler, and color Doppler. Height: Height: 66in. Weight: Weight: 148.7lb. Body mass index: BMI: 24kg/m^2. Body surface area: BSA: 1.76m^2. Patient status: Inpatient. CARDIAC ANATOMY LEFT VENTRICLE: The cavity size was mildly dilated. There was no hypertrophy. Systolic function was severely reduced. The estimated ejection fraction was in the range of 25% to 30%. Diffuse hypokinesis. The study is not technically sufficient to allow evaluation of LV diastolic function. AORTIC VALVE: Trileaflet. Doppler: There was no stenosis. No significant regurgitation. Valve area: 2.3cm^2 (Vmax). Indexed valve area: 1.31cm^2/m^2 (Vmax). MITRAL VALVE: The valve appears to be grossly normal. Doppler: There was no evidence for stenosis. Trace regurgitation. Valve area by pressure half-time: 3.93cm^2. Indexed valve area by pressure half-time: 2.23cm^2/m^2. Mean gradient: 4mm Hg (D). Peak gradient: 10mm Hg (D). LEFT ATRIUM: The atrium was mildly dilated. RIGHT VENTRICLE: Not well visualized. PULMONIC VALVE: Not well visualized. Doppler: There was no evidence for stenosis. No significant regurgitation. TRICUSPID VALVE: The valve appears to be grossly normal. Doppler: There was no evidence for stenosis. Mild regurgitation. Peak gradient: 51mm Hg (D). PERICARDIUM: There was no pericardial effusion. Patient weight: 148.7lb _Ejection fraction:_ 65-75% _Fractional shortening:_ 32% up to 5Kg 5-11.5Kg 11.6-22.9Kg 23-45Kg 45-57Kg Aortic Root 7-13 <17 13-22 17-27 17-27 LA diam 6-13 <23 24-38 33-47 37-40 RVID 10-17 7-15 7-15 7-18 8-17 LVIDd 12-22 <32 24-38 33-47 37-40 LVPW 2-4 3-6 5-7 6-8 7-8 IVS 2-4 3-6 5-7 6-8 7-8 BASIC MEASUREMENTS ADULT NORMAL Left ventricle LV internal dimension, ED, chordal *56.1 mm 43-52 level, PLAX LV internal dimension, ES, chordal *50.7 mm 23-38 level, PLAX Fractional shortening, chordal level, *10 % >29 PLAX LV posterior wall thickness, ED 9.65 mm IVS/LVPW ratio, ED 1.03 <1.3 Volume, ED, MOD, 1-plane 103 ml Volume, ES, MOD, 1-plane 73 ml Ejection fraction, MOD, 1-plane 29 % Stroke volume, MOD, 1-plane 30 ml Volume index, ED, MOD, 1-plane 59 ml/m^2 Volume index, ES, MOD, 1-plane 41 ml/m^2 Stroke index, MOD, 1-plane 17 ml/m^2 Ventricular septum Septal thickness, ED 9.96 mm Aortic valve Leaflet separation 15 mm 15-26 Left atrium Anterior-posterior dimension 44 mm Anterior-posterior dimension index *2.5 cm/m^2 <2.2 Right ventricle RV internal dimension, ED, PLAX 23.2 mm 19-38 BASIC MEASUREMENTS ADULT NORMAL Aortic valve Leaflet separation 15 mm 15-26 Aorta Root diameter, ED 28 mm 20-37 DOPPLER MEASUREMENTS ADULT NORMAL Aortic valve Peak velocity, S 136 cm/s VTI, S 35.6 cm Valve area, Vmax 2.3 cm^2 Valve area index, Vmax 1.31 cm^2/m^2 Mitral valve Peak E-wave velocity 129 cm/s Peak A-wave velocity 120 cm/s Mean velocity, D 88.4 cm/s Pressure half-time 56 ms Mean gradient, D 4 mm Hg Peak gradient, D 10 mm Hg Peak E/A ratio 1.1 Valve area, pressure half-time 3.93 cm^2 Valve area index, pressure half-time 2.23 cm^2/m^2 Tricuspid valve Peak gradient, D 51 mm Hg Maximal inflow velocity 357 cm/s Systemic veins Estimated CVP 10 mm Hg Pulmonic valve Peak velocity, S 111 cm/s LEGEND: Mean values are shown as u=mean value. Asterisk (*) horton values outside specified normal range. Prepared and signed by Kyle Rosenthal [id number]
[2016-09-18] MEDS ORDERED: POTASSIUM CHLORIDE 25 MEQ EFFERVESCENT TAB PO ONE (08:45)
[2016-09-18 08:47] LABS: BACTERIA, URINE RARE /hpf; BLOOD, URINE SMALL (NEG); COMMENT (UR) CULT NOT INDICATED; CULTURE IF INDICATED CULT NOT INDICATED; GLUCOSE,URINE TRACE mg/dL (NEG); KETONE, URINE NEG (NEG); NITRITE,URINE NEG (NEG); PH, URINE 6.5 (5.0-8.5); URINE COLOR YELLOW (YELLW/STRAW)
[2016-09-18] MEDS ORDERED: ASPIRIN EC 81 MG TABEC PO SCH (09:00)
[2016-09-18] MEDS ORDERED: CARVEDILOL 12.5 MG TAB PO SCH ×2 (09:00→21:00)
[2016-09-18 10:14] LABS: RETIC % 1.1 % (0.4-3.0); REVIEW FLAG FINAL
[2016-09-18 11:33] LABS: FERRITIN 420 NG/ML (26-388); TRANSFERRIN IRON PROFILE 163 MG/DL (200-360)
[2016-09-18 12:00] VITALS: BP 129/61; PULSE 68; RESP 16; TEMP 96.9; O2SAT 99
[2016-09-18] MEDS: SODIUM CHLORIDE 0.9% FLUSH 10 ML FLUSH IV FLUSH SCH (12:17)
[2016-09-18] MEDS ORDERED: LEVA500T PO (14:13)
[2016-09-18 16:00] VITALS: BP 116/69; PULSE 60; RESP 16; TEMP 96.6; O2SAT 98
[2016-09-18 16:06] LABS: HEMOGLOBIN A1b 2.4 %; HEMOGLOBIN Ao 80.3 %; HEMOGLOBIN LA1C 3.6 %; HEMOGLOBIN P3 6.4 %
[2016-09-18] MEDS ORDERED: ASPI81TA11 PO (16:28)
[2016-09-18] MEDS ORDERED: CARV12.5 PO (16:28)
--- NOTE | 2016-09-18 16:29 | HHI.FF ---
Face to Face Verification Diagnosis: (1) PNA (pneumonia) (2) Rhabdomyolysis Home Health Nursing Order: Medical education Signs/symptoms of disease process I have seen patient Rui Grubbs on 09/18/16. My clinical findings support the need for the requested home health care services because: Ltd mobility - disease progression Deconditioned w/ increased weakness I certify that my clinical findings support that this patient is homebound because: Impaired cognitive ability/safety Artemio Bailey MD Sep 18, 2016 16:29
--- NOTE | 2016-09-18 17:02 | MB ---
cc: BARB ANDERSON DATE OF CONSULTATION 09/18/16 REASON FOR CONSULTATION Reduced ejection fraction by echo. HISTORY OF PRESENT ILLNESS The patient is a 71-year-old male with a history of coronary artery disease, ischemic cardiomyopathy, diabetes, chronic renal insufficiency who presented to the hospital with severe generalized weakness. The patient recently went on a [employer] cruise. When he returned home, he was extremely fatigued and went to bed shortly after returning home. He slept for many hours and when he awoke he noted severe generalized weakness and fatigue. Shortly thereafter, he developed increasing dyspnea, cough, congestion. He may have also had some fever about six days ago. He denies angina, palpitations, dizziness, syncope, near-syncope, pedal edema, paroxysmal nocturnal dyspnea. Since coming into hospital, he states his energy has considerably improved as has his dyspnea. PAST MEDICAL HISTORY 1. Allergic rhinitis. 2. Chronic renal insufficiency. 3. Coronary artery disease status post four-vessel bypass surgery 1997. 4. Diabetes. 5. Gout. 6. Hyperlipidemia. 7. Ischemic cardiomyopathy with ejection fraction of 40% by echo 02/15/2015. Reportedly, his ejection fraction on echo this admission is 25-30%. MEDICATIONS Cardiac medications at home 1. Aspirin 81 mg daily. 2. Atorvastatin 40 mg q.h.s. 3. Coreg 25 mg b.i.d. 4. Enalapril 10 mg b.i.d. 5. Furosemide 20 mg daily p.r.n. ALLERGIES NO KNOWN DRUG ALLERGIES. FAMILY HISTORY Noncontributory. SOCIAL HISTORY The patient is a former smoker. He denies alcohol abuse. REVIEW OF SYSTEMS As in the history of present illness otherwise negative or noncontributory. He also denies headache, abdominal pain, diarrhea, melena, bright red blood per rectum. PHYSICAL EXAMINATION VITAL SIGNS: Blood pressure 129/60 with a pulse of 68, respirations 16. GENERAL: He is a well-developed, well-nourished male in no acute distress HEENT: Jugular venous pressure is normal. Carotid pulses are 2+ bilaterally and without bruits. CHEST: Unlabored respiratory effort with clear lung chavez. CARDIAC: Regular rhythm and rate without S3-S4 or murmur. ABDOMEN: Soft, nontender abdomen. Bowel sounds are present. There is no definite hepatosplenomegaly. EXTREMITIES: No clubbing, cyanosis or edema. IMAGING STUDIES Chest x-ray from 09/16/2016 shows no acute disease. LABORATORY DATA WBC 6.4, hemoglobin 9.4, platelets 137, potassium 3.5, BUN 17, creatinine 1.37, AST 121, ALT 90, CK 1273 with 0.2% MB fraction. Troponin 0.05. CARDIOLOGY STUDIES EKG shows sinus bradycardia, lateral T-wave abnormality, consider ischemia, left axis deviation. IMPRESSION Worsening cardiomyopathy in this 71-year-old male with a history of coronary artery disease status post bypass surgery many years ago, diabetes, gout, hyperlipidemia, chronic renal insufficiency. Reportedly, his echocardiogram this admission shows ejection fraction of 25-30%. His last echo prior to this admission was about two years ago showing ejection fraction of 40%. There is no definite evidence for congestive heart failure by chest x-ray or his present examination. The etiology of the decline in his ejection fraction is not entirely clear. It may be viral mediated. The patient reports no recent angina symptoms. There is no definite evidence for acute coronary syndrome. RECOMMENDATIONS 1. Repeat echo in 3 months; if at that time his ejection fraction is still less than 35% recommend AICD implantation. 2. Would try to resume his usual home cardiac medications as his blood pressures tolerate including beta lyle and SHAHIDA inhibitor therapy. 3. He is cleared for discharge from a cardiac standpoint. MD JACKSON Thomson/ /2:32 PM /4:49 PM [facility]
--- NOTE | 2016-09-18 17:42 | MB ---
cc: ALBER YU DATE OF CONSULTATION 09/18/16 HISTORY OF PRESENT ILLNESS A 71-year-old right-handed man with history of hypertension, non-insulin dependent diabetes, hypercholesterolemia, DC, coronary artery bypass graft, stent, chronic renal insufficiency, creatinine 1.3, hypothyroidism, psoriasis on methotrexate. He does take a baby aspirin a day. He went on a cruise, came back last , about a week ago, had a cough and then developed a fever, got confused during the day, better at night according to his daughter. He was diagnosed with rhabdomyolysis. He had confusion which has cleared. The cruise was in [place]. He had some mild dizziness, trouble standing and walking for a few days, had a rash. PAST MEDICAL HISTORY As above, also 1. Cardiomyopathy, 2. Congestive heart failure. ALLERGIES NO KNOWN DRUG ALLERGIES. MEDICATIONS 1. Lasix at that time. 2. Baby aspirin a day SOCIAL HISTORY Not a smoker or a drinker, lives with his . FAMILY HISTORY Negative for cancer, positive seizure in his daughter, negative for stroke. PHYSICAL EXAMINATION VITAL SIGNS: Afebrile. He has really been afebrile since being in the hospital, 59-68, heart rate down to 30s, sleeping at night and his Coreg has been backed off. NECK: There are no carotid bruits. HEART: Regular rhythm. I did not detect a murmur. NEUROLOGIC: Pupils are equal, visual chavez are full. Extraocular movements intact without nystagmus. Face symmetric with normal sensation. Tongue was midline. There is no drift. Normal strength in upper and lower extremities bilaterally. DTRs are 1+ symmetric throughout. Toes are downgoing bilaterally. Pinprick and vibratory sense was intact throughout. He is not ataxic on [id number]. There is no asterixis. He is awake and alert, oriented x3. Speech is fluent. He is not aphasic. Calculations are intact. 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 Short-term memory 1/3 at 3 minutes. LABORATORY DATA CBC - hematocrit is 27, had been 32 otherwise CBC normal. Basic metabolic profile - Initially sodium was 133 with a creatinine 1.49. His LFTs are elevated AST 248, ALT 100. CPK was 4800, albumin 3.2, BNP 757. B12 was greater than 2000, albumin 2.7, total protein 6.1. LFTs have stayed slightly elevated at 121 and 90 respectively. Calcium low at 7.9-7.7, magnesium was normal. Hemoglobin A1c is pending. Glucose 200, GFR 50. Coags - PTT 46. Urinalysis - 30 protein. IMAGING STUDIES MRI of his brain - some movement, chronic changes, old white matter ischemic on the right. Review of the films - some diffuse atrophy is noted. I would say more than I expect for his age and some prominent central and cortical atrophy is noted. The right lateral ventricle is dilated a little bit compared to the left and there is an old what appears to be possibly somewhat cortically based infarct in the right posterior parietal head region. No acute infarct is noted. IMPRESSION Old right parietal infarct. Certainly, with a cardiomyopathy it could be a potential source. I would check a Holter and an echocardiogram. I thought overall he looked like he has bounced back. I think he had a metabolic encephalopathy. We will also check an MRA of the neck and [place] and an EEG. MD JAVED Salguero/ /3:03 PM /5:24 PM
[2016-09-18] MEDS ORDERED: LISINOPRIL 10 MG TAB PO SCH (21:00)
--- NOTE | 2016-09-19 19:17 | HHI.DS ---
Discharge Summary Admission Date Sep 16, 2016 at 18:26 Discharge Date: Sep 18, 2016 Admitting Diagnosis rhabdomyolysis, acute kidney injury, elevated BNP (1) Acute confusion (2) Rhabdomyolysis (3) Acute kidney injury (4) PNA (pneumonia) (5) Diabetes 1.5, managed as type 2 (6) Thrombocytopenia (7) Bradycardia CBC/BMP: 09/18/16 0555 09/18/16 0555 Significant Findings Laboratory Tests Test 09/17/16 09/17/16 09/18/16 09/18/16 05:52 13:56 05:55 07:30 Red Blood Count 3.12 MIL/MM3 2.89 MIL/MM3 (4.50-5.90) (4.50-5.90) Hemoglobin 9.8 GM/DL 9.4 GM/DL (13.0-17.0) (13.0-17.0) Hematocrit 29.4 % 26.6 % (39.0-51.0) (39.0-51.0) Platelet Count 120 TH/MM3 137 TH/MM3 (150-450) (150-450) Monocytes (%) (Auto) 26.9 % 23.1 % (0.0-8.0) (0.0-8.0) Lymphocytes # (Auto) 0.8 TH/MM3 0.5 TH/MM3 (1.0-4.8) (1.0-4.8) Monocytes # (Auto) 1.7 TH/MM3 1.5 TH/MM3 (0-0.9) (0-0.9) Band Neutrophils % 15 % (0-6) Monocytes % 13 % (0-8) Plasma Cells 1 % (0-0) Platelet Estimate LOW (NORMAL) Sodium Level 133 MEQ/L 134 MEQ/L (136-145) (136-145) Blood Urea Nitrogen 21 MG/DL (7-18) Creatinine 1.40 MG/DL 1.37 MG/DL (0.60-1.30) (0.60-1.30) Estimat Glomerular Filtration 50 ML/MIN (>89) 51 ML/MIN (>89) Rate Random Glucose 200 MG/DL 168 MG/DL (74-106) (74-106) Calcium Level 7.9 MG/DL 7.7 MG/DL (8.5-10.1) (8.5-10.1) Total Creatine Kinase 2923 U/L 2218 U/L 1273 U/L (39-308) (39-308) (39-308) Direct Bilirubin 0.5 MG/DL 0.8 MG/DL (0.0-0.2) (0.0-0.2) Aspartate Amino Transf 173 U/L (15-37) 121 U/L (15-37) (AST/SGOT) Alanine Aminotransferase 100 U/L (12-78) 90 U/L (12-78) (ALT/SGPT) Albumin 2.9 GM/DL 2.7 GM/DL (3.4-5.0) (3.4-5.0) Lymphocytes (%) (Auto) 8.2 % (9.0-44.0) Total Bilirubin 1.4 MG/DL (0.2-1.0) Total Protein 6.1 GM/DL (6.4-8.2) Urine Protein 30 mg/dL (NEG-TRACE) Urine Occult Blood SMALL (NEG) Urine Bacteria RARE /hpf (NONE) Test 09/18/16 10:41 Hemoglobin A1c 7.3 % (4.3-6.0) Iron Level 27 MCG/DL (65-175) Total Iron Binding Capacity 228 MCG/DL (250-450) Percent Iron Saturation 11.8 % (20-50) Ferritin 420 NG/ML (26-388) Vitamin B12 Level GREATER THAN 2000 PG/ML (193-986) Imaging Last Impressions Chest X-Ray 09/17/16 0000 Signed Impressions: Service Date/Time: Saturday, September 17, 2016 08:24 - CONCLUSION: Patchy mild parenchymal infiltrates. Demarcus Lopez MD Brain MRI 09/17/16 0000 Signed Impressions: Service Date/Time: Saturday, September 17, 2016 13:18 - CONCLUSION: 1. Examination quality is degraded by motion artifact. No acute intracranial abnormality is identified. 2. Chronic changes include generalized atrophy and chronic periventricular white matter changes along with right parietal white matter change likely related to old ischemia. 3. Diffuse paranasal sinus mucoperiosteal thickening with fluid in the mastoid air cells. Demarcus Duran MD Hospital Course This is a very pleasant 71-year-old male who presented to the emergency room for wheezing and shortness of breath. The patient has noted problems for the past five days. He stated that he had been in his usual state of health up until that point. He also noticed some mild dizziness off and on but no syncopal episodes. He also stated that he has had trouble standing and walking for the past few days. These are all new symptoms. The patient denied any problems with COPD or bronchitis, He does have a history of cardiovascular disease and had a work up not too long ago, but denied any type of shortness of breath or wheezing. He does note, history of congestive heart failure but at this time his chest x-ray looked clear. The patient has a large macular rash noted on his trunk, especially on his back and on his arms. He stated that he has been treated for psoriasis for years. The patient denied any chest pain, denies any nausea and vomiting, diarrhea, no constipation, no headaches. The patient stated that he had been voiding without any problems but he did have a sense of urgency. Pt. evaluated in ED: Sodium 133, potassium 0.2, chloride was 100, carbon dioxide 24.6 and anion gap 8, BUN 26, creatinine 1.49, GFR 46, random glucose 219, lactic acid 1.4, calcium 8.6, magnesium 1.7, total bilirubin 1.1, AST 248, ALT 100 alkaline phosphatase 78, total creatinine kinase 4812, CPK-MB 2, CPK-MB is 4.2, percentage 0.1, troponin 0.05. BNP 757, total protein 7, albumin 3.2. PT/INR is 1, white blood cell 5.2, RBC 3.37, hemoglobin 7.1, hematocrit 31.6, platelet count 134. Neutrophil auto percentage 74, monocyte, auto percentage 16.5. IMAGING STUDIES Shows chest pain to have no acute disease. Pt admitted for: (1) Rhabdomyolysis (2) Acute kidney injury (3) Bradycardia (4) Acute confusion (5) PNA (pneumonia) (6) Transaminitis (7) Hyperglycemia (8) Anemia (9) Thrombocytopenia During the course of the hospitalization, the following took place: Patient put on IV fluids, CPK trending down, renal function improved LFTs elevated, etiology unclear now trending down Hyperglycemia, hx of DM Hemoglobin A1c ordered 7.3 continued accuchecks AC/HS with ISS Blood glucose improved During hospitalization, patient had episode of AMS, hypoxia, wheezing 09/17 CXR ordered, poss. PNA received Lasix. Put on empiric abx started on duonebs Brain MRI done, no acute findings but old CVA was noted. The next day, mental status improved Daughter reported falls at home prior to admission Patient started on aspirin 81 mg by mouth daily Neurology consulted Echo ordered, EF 25-30% Dr. Layne evaluated patient, believed AMS was likely a metabolic issue. However CT did show old CVA. Workup was recommended, patient refused Because of worsening EF, prior echo had shown EF 40%. Cardiology was consulted. Patient was evaluated by Dr. Monreal, he recommended repeat echo in 3 months and continuation of meds Patient was noted with anemia, hgb stable Checked iron studies, low iron stores noted Was noted manjinder on tele, while sleeping dec. Coreg Physical therapy was ordered Electrolytes were replaced, patient was hyperkalemic Was put on heparin for DVT prophylaxis Patient overall improved, he did not want to remain in the hospital, refused neurology workup Case was discussed in detail with patient's daughter who was a heavy truck technician. Her questions were answered in detail Case management was consulted for home health care Patient was discharged home in stable condition Pt Condition on Discharge: Stable Discharge Disposition: Disch w/ Home Health Serv Discharge Instructions DIET: Follow Instructions for: Heart Healthy Diet, Diabetic Diet Activities you can perform: Weight Bearing as Liseth Follow up Referrals: PCP Follow-up New Medications: Aspirin DR (Aspirin EC) 81 Mg Tabdr 81 MG PO DAILY Blood Clot Prevention #30 Ref 6 TAB Carvedilol (Coreg) 12.5 Mg Tab 12.5 MG PO BID heart disease #60 Ref 6 TAB Continued Medications: Atorvastatin (Atorvastatin) 40 Mg Tab 40 MG PO HS Cholesterol Management #30 Ref 0 TAB Empagliflozin (Jardiance) 25 Mg Tab 25 MG PO DAILY Blood Sugar Management #30 Ref 0 TAB Enalapril (Vasotec) 10 Mg Tab 10 MG PO BID #60 Ref 0 TAB Glyburide-Metformin (Glyburide-Metformin) 2.5-500 Mg Tab 2 TAB PO BID Take with a meal Blood Sugar Management #60 Ref 0 TAB Levothyroxine (Levothyroxine) 25 Mcg Tab 25 MCG PO DAILY Thyroid #30 Ref 0 TAB Methotrexate (Methotrexate) 2.5 Mg Tab 12.5 MG PO Q7D Ref 0 TAB Discontinued Medications: Carvedilol (Coreg) 25 Mg Tab 25 MG PO BID #60 Ref 0 TAB Christi Brewer [facility] Sep 19, 2016 19:17
[2016-09-20] MEDS ORDERED: PHARMACY ORDERED LAB ONE (19:45)
== END 2016-09-18 18:45 | disposition home or self-care (01) | DRG 194 ==
LOC: NEPE 11:05 → NEDA 13:23 → NEPGCP 15:48 → OBSVTOIN 18:26 → HOCA 09-17 11:04
PROVIDERS: ADMIT Internal Medicine; ATTEND Internal Medicine
DX: J18.9 Pneumonia, unspecified organism (principal); M62.82 Rhabdomyolysis; N17.9 Acute kidney failure, unspecified; E11.649 Type 2 diabetes mellitus with hypoglycemia without coma; E44.1 Mild protein-calorie malnutrition; E87.1 Hypo-osmolality and hyponatremia; D69.6 Thrombocytopenia, unspecified; I50.9 Heart failure, unspecified; D64.9 Anemia, unspecified; I25.5 Ischemic cardiomyopathy; J40 Bronchitis, not specified as acute or chronic; I25.10 Atherosclerotic heart disease of native coronary artery without angina pectoris; Z95.1 Presence of aortocoronary bypass graft; Z95.5 Presence of coronary angioplasty implant and graft; R21 Rash and other nonspecific skin eruption; E03.9 Hypothyroidism, unspecified; E87.6 Hypokalemia; L40.9 Psoriasis, unspecified; Z87.891 Personal history of nicotine dependence; E78.00 Pure hypercholesterolemia, unspecified; E78.5 Hyperlipidemia, unspecified; Z91.81 History of falling; R00.1 Bradycardia, unspecified; R41.0 Disorientation, unspecified; N18.9 Chronic kidney disease, unspecified; R09.02 Hypoxemia; R74.0 Nonspecific elevation of levels of transaminase and lactic acid dehydrogenase [LDH]
CPT/HCPCS: 70551; 71010; 76937; 80048; 80053; 80076; 81001; 82550; 82552; 82607; 82728; 82948; 83036; 83540; 83550; 83605; 83735; 83880; 84484; 85007; 85025; 85027; 85044; 85610; 85730; 87040; 93005; 93306; 94640; 94664; 96374; J0696; J1644; J2543; J3370; J7030; J7050